=== PATIENT | female | born 1940 | race Caucasian/White ===

== ENCOUNTER 2016-11-05 21:29 | Emergency (ER) | payer MEDICARE | END 2016-11-06 01:18 | disposition critical access hospital (66) | LOC: ER 21:29 | DX: N17.9 Acute kidney failure, unspecified (principal); R41.82 Altered mental status, unspecified; E86.0 Dehydration; R25.2 Cramp and spasm; E11.9 Type 2 diabetes mellitus without complications; I10 Essential (primary) hypertension; Z79.84 Long term (current) use of oral hypoglycemic drugs; Z79.899 Other long term (current) drug therapy; Z88.2 Allergy status to sulfonamides; Z90.710 Acquired absence of both cervix and uterus; Z98.51 Tubal ligation status; Z85.828 Personal history of other malignant neoplasm of skin | CPT/HCPCS: 36415; 51702; 96361; 96374; 96375; 96376; J2060 ==

== ENCOUNTER 2016-11-05 21:29 | Inpatient (IN) | payer MEDICARE ==
[~2016-11-05] VITALS: Ht 160 cm; Wt 73.0 kg
[2016-11-11] MEDS ORDERED: NORVASC10 MG PO (15:25)
[2016-11-11] MEDS ORDERED: ASPIR 8181 MG PO (15:26)
[2016-11-11] MEDS ORDERED: BISOPROLOL-HCT1 EACH PO (15:26)
[2016-11-11] MEDS ORDERED: CYCLOBENZAPRINE10 MG PO (15:27)
[2016-11-11] MEDS ORDERED: ENALAPRIL MALEA20 MG PO (15:29)
[2016-11-11] MEDS ORDERED: OMEPRAZOLE20 MG PO (15:29)
[2016-11-11] MEDS ORDERED: ACETAMINOPHEN325 MG PO (15:30)
[2016-11-11] MEDS ORDERED: MEDROL4 M1 PO (15:30)
== END 2016-11-11 18:10 | disposition home or self-care (01) | DRG 641 ==
LOC: ER 21:29 → MED 23:49 → ER 11-06 01:19 → MED 11-06 01:19
PROVIDERS: ADMIT Internal Medicine
DX: E86.0 Dehydration (principal); N17.9 Acute kidney failure, unspecified; R11.2 Nausea with vomiting, unspecified; M10.9 Gout, unspecified; E11.9 Type 2 diabetes mellitus without complications; I10 Essential (primary) hypertension; C44.90 Unspecified malignant neoplasm of skin, unspecified; K82.9 Disease of gallbladder, unspecified; K21.9 Gastro-esophageal reflux disease without esophagitis; E78.5 Hyperlipidemia, unspecified; F41.9 Anxiety disorder, unspecified; F32.9 Major depressive disorder, single episode, unspecified; Z79.84 Long term (current) use of oral hypoglycemic drugs; Z79.899 Other long term (current) drug therapy; Z88.2 Allergy status to sulfonamides; Z90.710 Acquired absence of both cervix and uterus; Z83.3 Family history of diabetes mellitus; M62.838 Other muscle spasm; M25.50 Pain in unspecified joint; Z96.659 Presence of unspecified artificial knee joint; Z98.51 Tubal ligation status; T45.1X5A Adverse effect of antineoplastic and immunosuppressive drugs, initial encounter; E83.42 Hypomagnesemia; R63.0 Anorexia; K59.00 Constipation, unspecified; Z68.28 Body mass index [BMI] 28.0-28.9, adult
CPT/HCPCS: 36415; 97161-GP; 97166; A9537; J1644; J1650; J2060; J2805